=== PATIENT | female | born 1970 ===

== ENCOUNTER 2019-09-14 11:45 | Inpatient (IN) | payer OTHER ==
[~2019-09-14] VITALS: Ht 160 cm; Wt 69.4 kg
[2019-09-14] MEDS ORDERED: LEVOTHYROXINE25 MCG PO (14:29)
[2019-09-14] MEDS ORDERED: TOPROL XL25 M1 PO (14:29)
[2019-09-24] MEDS ORDERED: Tylenol #3 PO (10:56)
== END 2019-09-24 12:23 | disposition home or self-care (01) | DRG 743 ==
LOC: OB/GYN 09-21 05:50 → O/R 09-21 05:50 → SURH 09-21 07:00 → O/R 09-21 11:45 → SURH 09-21 11:45 → OB/GYN 09-21 13:58
PROVIDERS: ADMIT Obstetrics & Gynecology
PROC: 0DNW0ZZ Release Peritoneum, Open Approach (ICD-10-PCS; 2019-09-21)
PROC: 0UQF4ZZ Repair Cul-de-sac, Percutaneous Endoscopic Approach (ICD-10-PCS; 2019-09-21)
PROC: 0USG4ZZ Reposition Vagina, Percutaneous Endoscopic Approach (ICD-10-PCS; 2019-09-21)
PROC: 0TJB8ZZ Inspection of Bladder, Via Natural or Artificial Opening Endoscopic (ICD-10-PCS; 2019-09-21)
PROC: 0UT9FZZ Resection of Uterus, Via Natural or Artificial Opening With Percutaneous Endoscopic Assistance (ICD-10-PCS; principal; 2019-09-21 07:00)
DX: D25.1 Intramural leiomyoma of uterus (principal); N80.0 Endometriosis of uterus; N72 Inflammatory disease of cervix uteri